=== PATIENT | male | born 1975 ===

== ENCOUNTER 2019-04-17 12:27 | Emergency (ER) | payer MEDICAID ==
[~2019-04-17] VITALS: Ht 170.2 cm; Wt 53.1 kg
[2019-04-17 12:47] VITALS: Ht 170.2 cm; Wt 53.1 kg
[2019-04-17 15:34] VITALS: BP 113/68
== END 2019-04-17 15:34 | disposition home or self-care (01) ==
LOC: ED 12:27
DX: R07.89 Other chest pain (principal); Z87.442 Personal history of urinary calculi; Z88.5 Allergy status to narcotic agent; Z91.011 Allergy to milk products; Z88.8 Allergy status to other drugs, medicaments and biological substances